=== PATIENT | male | born 1980 | race Caucasian/White ===

== ENCOUNTER 2017-02-13 16:57 | Emergency (ER) | payer SELFPAY ==
[~2017-02-13] VITALS: Ht 167.6 cm; Wt 94.8 kg
[~2017-02-13 16:57] MED LIST: CLB/200 PO; GLC/500 PO; METH1INJ89 INJ; PRED-301 PO; PRT/20 PO
[2017-02-13 16:59] VITALS: BP 109/70; PULSE 81; TEMP 36.5; O2SAT 97; Ht 167.6 cm; Wt 94.8 kg
[2017-02-13] MEDS ORDERED: PRED10TA PO (17:11)
[2017-02-13] MEDS ORDERED: ADAL40KI SQ (17:11)
[2017-02-13] MEDS ORDERED: HYDR-5688 PO ×2 (18:06→18:07)
[2017-02-13] MEDS ORDERED: CYCL5TAB PO ×2 (18:06→18:07)
--- NOTE | 2017-02-13 18:09 | EMERGENCY ROOM VISIT NOTE ---
ED Visit Note First contact with patient: 17:51 CHIEF COMPLAINT: Low back pain HISTORY OF PRESENT ILLNESS: This 36-year-old male patient presents to the emergency department via private vehicle complaining of pain in the low back which began January 30 on the left side between the left shoulder blade and the buttocks region. The pain was gradual in onset, is now constant and worse with movement. He notes that today while lifting a 2 x 12 he twisted and felt immediate pain in the same region of the left paraspinous musculature. The patient notes the pain as severe and a 8/10. The patient has taken icy hot type material without relief of the pain. The patient denies any loss of control of their bowel or bladder functions. There has been no leg numbness or weakness, and no change in sensation. No nausea or vomiting or abdominal pain. No chest pain or shortness of breath, but does note that he has slight difficulty breathing when the muscle spasm occurs. The patient has no had prior back injuries. No dysuria or increased urinary frequency. REVIEW OF SYSTEMS: A review of systems was performed with positives and pertinent negatives listed in the history of present illness. All other systems were reviewed and are negative. ALLERGIES: None MEDICATIONS: As noted below PMH: Psoriatic arthritis SOCIAL HISTORY: Patient lives locally PHYSICAL EXAM: VITALS: Vitals are noted on the nurse's note and reviewed by myself. Vital signs stable. GENERAL: 36-year-old male, in no acute distress, nondiaphoretic, well-developed well-nourished. SKIN: The skin was without rashes, erythema, edema, or bruising. HEART: Regular rate and rhythm without murmurs gallops or rubs. LUNGS: Clear to auscultation bilaterally without wheezes, rales or rhonchi. ABDOMEN: Positive bowel sounds x 4. Soft, nontender, without masses or organomegaly. MUSCULOSKELETAL: No muscle atrophy, erythema, or edema noted of the back. There is no tenderness over the lumbar spinous processes. There is positive tenderness over the paraspinous muscles of the left side of the spine from the left scapular region inferior to the gluteal region. There is no tenderness over the thoracic spine but there is tenderness on the left paraspinous muscles. There are positive left-sided muscle spasms present. The patient is slow to move around with maximum tenderness with just below the left scapula and the paraspinous musculature. NEURO: Deep tendon reflexes 2+ in the lower extremities. Strength 5/5 and equal in the bilateral lower extremities. EMERGENCY DEPARTMENT COURSE: Patient was seen and evaluated as above. He presents to us today with back pain and some shortness of breath when the pain occurs. There is no chest pain. Vital signs stable. No evidence of cauda equina on my exam. His pain is reproducible by palpation of the left paraspinous musculature on exam. I believe this is consistent with that of the paraspinous musculature spasm or strain. He'll be managed with Flexeril/muscle relaxers as well as a short course of pain medication. I do not believe that any imaging at this time is appropriate and will be of no benefit. He is to follow with his family doctor regarding today's visit. He was educated upon management, educated upon worrisome symptoms in which to return, had questions answered prior to discharge, and was discharged home in good condition. In the treatment of this patient controlled medication was utilized and therefore the [facility], Prescription Drug Monitoring Program website was utilized to look up this patient. No concerns were identified that would prohibit or alter my treatment decision. In evaluation treatment this patient following differential diagnoses radiographs: Cauda equina syndrome, lumbar strain, sprain, fracture, dislocation , among others. Problem List Medical Problems: (1) Diabetes mellitus Status: Chronic (2) Lyme arthritis Status: Chronic (3) Psoriasis Status: Chronic Current/Historical Medications Scheduled Adalimumab (Humira Pen), 1 DOSE SQ [id number] Celecoxib (CeleBREX), 200 MG PO DAILY Cyclobenzaprine Hcl (Flexeril), 5 MG PO TID Metformin Hcl (Glucophage), 1,000 MG PO BID Pantoprazole (Protonix), 1 TAB PO DAILY Prednisone (Prednisone), 10 MG PO DAILY Scheduled PRN Hydrocodone/Acetaminophen 5MG/325MG ([place] 5MG/325MG), 1-2 TABLET PO Q6 PRN for Pain Allergies Coded Allergies: No Known Allergies (Unverified Allergy, Mild, 01/31/08) Vital Signs Date Time Temp Pulse Resp B/P (MAP) Pulse Ox O2 Delivery O2 Flow Rate FiO2 02/13/17 16:59 36.5 81 16 109/70 97 Room Air Departure Information Impression Primary Impression: Strain of lumbar region Dispostion Home / Self-Care Condition GOOD Prescriptions Hydrocodone/Acetaminophen 5MG/325MG ([place] 5MG/325MG) Tab 1-2 TABLET PO Q6 Y for Pain, #15 TAB For Initial Treatment Prov: Geovanni Hernández PA-C 02/13/17 Cyclobenzaprine Hcl (FLEXERIL) 5 Mg Tab 5 MG PO TID for 7 Days, #21 TAB PRN Prov: Geovanni Hernández PA-C 02/13/17 Referrals [facility] (PCP) Patient Instructions [facility] Additional Instructions You have been treated in the Emergency Department for Back Pain. You have received pain medicine in the emergency department which impairs your ability to operate a vehicle. It is illegal for you to drive after receiving these medicines. You have been prescribed NORCO to be used for pain control. This is a narcotic medication. You cannot drive or consume alcohol while on this medicine. This medicine should only be used for pain that cannot be controlled with over-the- counter pain medicines. You have been prescribed Flexeril (cyclobenzaprine) 1-2 tabs orally, three times per day. Do NOT exceed 30 mg (6 tabs) per day. Take your first dose at bedtime as it can make you drowsy. Always take all medications as prescribed. For pain control, you can use the following [id number] medicines (if >12 yo): - Regular strength (325mg/tab) Tylenol (acetaminophen) 2 tabs every 4-6 hours as needed. Do not exceed 12 tablets in a 24 hour period. Avoid taking more than 3 grams (3000 mg) of Tylenol per day. This includes any other sources of acetaminophen you may take on a regular basis. NO TYLENOL WITH THE NORCO - Regular strength (200 mg/tab) Advil (ibuprofen) 1-2 tabs every 4-6 hours as needed. Do not exceed a dose of 3200 mg per day. If this is an acute injury, ice can be applied to the area of pain for the first 3 days to help decrease pain and inflammation. After the first 3 days, a heating pad can be used over the area for continued soothing relief. You should schedule a follow-up appointment in 2-3 days with your Primary Care Provider for further evaluation and treatment of your back pain. Return to the Emergency Department if your current symptoms worsen despite treatment course outlined above, or if you develop any of the following symptoms : intractable pain despite aforementioned treatment course, loss of control of your bowel or bladder, numbness or tingling in your groin, or development of a fever.
== END 2017-02-13 18:14 | disposition home or self-care (01) ==
LOC: C.EDB 16:59 → C.EDD 18:14
DX: S39.012A Strain of muscle, fascia and tendon of lower back, initial encounter (principal); X58.XXXA Exposure to other specified factors, initial encounter; E11.9 Type 2 diabetes mellitus without complications; A69.23 Arthritis due to Lyme disease; L40.9 Psoriasis, unspecified

== ENCOUNTER 2017-05-11 21:47 | Emergency (ER) | payer SELFPAY ==
[~2017-05-11] VITALS: Ht 167.6 cm; Wt 92.6 kg
[~2017-05-11 21:47] MED LIST changes: +ADAL40KI SQ; +HYDR-5688 PO; -METH1INJ89 INJ; -PRED-301 PO; +PRED10TA PO
[2017-05-11 21:48] VITALS: BP 129/83; TEMP 37; Ht 167.6 cm; Wt 92.6 kg
[2017-05-11] MEDS ORDERED: AMOX875T PO (22:09)
[2017-05-11] MEDS ORDERED: DIPHTHERIA/TETANUS/PERTUSSIS 0.5 ML SYR/VIAL IM. ONE (22:15)
[2017-05-11] MEDS ORDERED: AMOXICIL/CLAVU 875MG HOME PACK PO ONE (22:15)
[2017-05-11 22:22] VITALS: PULSE 76; O2SAT 97
--- NOTE | 2017-05-12 00:16 | EMERGENCY ROOM VISIT NOTE ---
ED Visit Note First contact with patient: 21:52 Chief Complaint: Dog bite. History of Present Illness: Mr. Francis is a 37-year-old male who ambulates into the ED complaining of a dog bite to the left hand. Patient reports approximately 20 minutes prior to arrival at the hospital he was playing with his dog and received a dog bite to the dorsal aspect of the left hand. He reports prior to arrival he did control bleeding. Currently patient is complaining of a throbbing pain throughout the dorsal aspect of the hand. He rates his discomfort 7/10. Pain is nonradiating. His pain worsens with palpation of his puncture wounds. He has not identified any alleviating factors related to the pain. He has not taken any medication for pain prior to arrival at the hospital. He denies any associated symptoms including other arm or wrist pain, hand weakness/numbness/tingling. He does report his dog is an indoor dog and has been of his normal temperature but notes that his rabies immunizations have not been updated in the last 3 years. Review of Systems: As noted above in history of present illness. Past Medical History: Diabetes, arthritis. Current Medications: Glucophage, Protonix, Celebrex and Humira. Allergies to Medications: Patient denies. Social History: Patient is currently employed; he feels safe in his home environment; he admits to tobacco use and denies alcohol use. Tetanus Immunization Status: Patient reports out to date. Physical Examination: Vital Signs: Date Time Temp Pulse Resp B/P (MAP) Pulse Ox O2 Delivery O2 Flow Rate FiO2 05/11/17 22:22 76 16 97 05/11/17 21:48 37.0 80 18 129/83 96 Room Air GENERAL: 37-year-old male in mild to moderate distress due to pain, nontoxic- appearing, afebrile and hemodynamically stable. NEUROLOGICAL: Awake, alert and oriented to person, place and time. Answering questions appropriately and following commands. Normal gait. Good hand eye coordination. No focal motor or sensory deficits. SKIN: Warm, dry and pink. Left Hand: Over the dorsal aspect of the left hand patient has 2 puncture wounds. #1 puncture wound: Is located over the fourth MCP joint. This does appear to be full thickness. There is no active bleeding. #2 puncture wound: Is located be between the second and third metacarpal. This appears partial-thickness. There is no active bleeding. Around both of these injuries there is mild swelling but no ecchymosis. LEFT HAND: No gross bony deformity. No tenderness throughout the wrist. Moderate tenderness over both wounds but no other hand tenderness. Patient had full range of motion of all MCP, PIP and DIP joints against resistance. Throughout all fingers the skin was warm and pink and capillary refill was brisk. He was able to distinguish light sensations through all dermatomes of the fingers and the hand. ED Course: Patient is assessed as noted above. Patient's medication list was reviewed. Patient was offered pain medication and refused. Patient was given an Adacel booster. Patient's wounds were cleansed with antibacterial soap and water and covered with a bacitracin dressing. Patient was educated about today's findings and instructed on his treatment plan ; he verbalized understanding and agreement with this plan. Clinical Impression: Dog bite/puncture wounds to the left hand. Disposition: A shunt discharged home in stable condition; prior to departure he was reassessed and subjectively reported he was feeling the same. Plan: Patient was encouraged to alternate ibuprofen and acetaminophen as needed for pain. Patient was encouraged to use ice on the area of pain and swelling 5-6 times a day for 20-30 minutes per Patient was prescribed Augmentin 875 mg 2 times a day for 10 days. Patient was educated on wound care and signs of infection, uncontrolled pain or any new/concerning symptoms.. Patient was encouraged to contact his dog's vet, and inform them of today's ED visit and request that the dog be followed for rabies and have his rabies immunization updated. Patient was encouraged to follow-up with primary care provider return to the ED for any signs of infection
== END 2017-05-11 22:23 | disposition home or self-care (01) ==
LOC: C.EDB 21:48 → C.EDD 22:23
DX: S61.452A Open bite of left hand, initial encounter (principal); W54.0XXA Bitten by dog, initial encounter; Y92.019 Unspecified place in single-family (private) house as the place of occurrence of the external cause; E11.9 Type 2 diabetes mellitus without complications; M19.90 Unspecified osteoarthritis, unspecified site; Z72.0 Tobacco use; Z79.899 Other long term (current) drug therapy

== ENCOUNTER 2017-09-15 11:02 | Emergency (ER) | payer OTHER ==
[~2017-09-15] VITALS: Ht 167.6 cm; Wt 90.4 kg
[~2017-09-15 11:02] MED LIST changes: -HYDR-5688 PO; -PRED10TA PO
[2017-09-15 11:06] VITALS: TEMP 36.7; Ht 167.6 cm; Wt 90.4 kg
[2017-09-15] MEDS ORDERED: ALL100 PO (11:27)
--- NOTE | 2017-09-15 11:47 | DIAGNOSTIC IMAGING REPORT ---
R FOOT MIN 3 VIEWS ROUTINE HISTORY: 37 years-old Male tree trunk fell on right foot acute right foot pain COMPARISON: Right ankle radiographs 05/07/2013 TECHNIQUE: 3 views of the right foot FINDINGS: Marginal bone erosions with proliferative changes about the metatarsophalangeal to lesser extent interphalangeal joints are noted throughout. Hence on cup deformity of the fifth metatarsal phalangeal joint with mild periostitis of the mid shaft fifth metatarsal. Joint subluxation is noted within the third through fifth interphalangeal joints and also within the third through fifth metatarsophalangeal joints. Soft tissue prominence about the digits compatible with dactylitis. Bones appear mildly demineralized. No acute fracture or dislocation. Moderate enthesophyte about the calcaneus. Mild marginal spurring of the midfoot and tibiotalar joint. IMPRESSION: 1. No acute fracture or dislocation. 2. 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 The above report was generated using voice recognition software. It may contain grammatical, syntax or spelling errors. Electronically signed by: William Polanco M.D. 09/15/2017 11:45 AM Dictated Date/Time: 09/15/2017 11:38 AM
[2017-09-15 12:15] VITALS: BP 118/81; PULSE 88; O2SAT 98
--- NOTE | 2017-09-15 15:30 | EMERGENCY ROOM VISIT NOTE ---
ED Visit Note First contact with patient: 11:09 Chief Complaint: Right foot pain. History of Present Illness: Mr. Francis is a 37-year-old male who ambulates into the ED accompanied by his and son complaining of right foot pain over the first, second and third metatarsals. Patient reports he was at work last week, 4-5 days ago, and had a tree trunk roll over his foot. Since that time he has been having pain and swelling. He reports yesterday he noticed some ecchymosis but that has subsequently resolved. He is most concerned about the constant pain that is in the area. Currently he describes the pain as a throbbing sensation. He rates his discomfort 5/10. His pain is nonradiating. His pain worsens with palpation and weightbearing. He reports he has mild relief of his pain when he is not ambulating and in bed at rest at night with NSAIDs including Aleve and ibuprofen. He denies any previous significant injuries or surgeries. He denies any associated symptoms including knee pain, ankle pain, toe pain. Review of Systems: As noted above in history of present illness. Past Medical History: Diabetes, psoriatic arthritis. Current Medications: Metformin, Protonix, Celebrex, Humira, Allopurinol Allergies to Medications: Patient denies. Social History: Patient is currently employed; he feels safe in his home environment; he admits to tobacco use and denies alcohol use Physical Examination: Vital Signs: Date Time Temp Pulse Resp B/P (MAP) Pulse Ox O2 Delivery O2 Flow Rate FiO2 09/15/17 12:15 88 118/81 98 09/15/17 11:06 36.7 102 18 109/75 97 Room Air GENERAL: 37-year-old male in mild distress due to pain, nontoxic-appearing, afebrile and hemodynamically stable. NEUROLOGICAL: Awake, alert and oriented to person, place and time. Answering questions appropriately and following commands. SKIN: Warm, dry and pink. RIGHT LOWER EXTREMITY: No gross bony deformity. No tenderness in the knee, lower leg or ankle. Moderate tenderness over the dorsal aspect of the foot including the first, second and third metacarpals. There is mild swelling and minimal residual ecchymosis in this area. I do not appreciate any bony deformity or crepitus. He had full range of motion in plantarflexion, dorsiflexion and inversion and eversion of the ankle. He was able to wiggle his toes. He does have arthritic changes to the toes predominantly at the MTP joints. Throughout the foot the skin was warm and pink and capillary refill was brisk. He was able to distinguish light sensations to all dermatomes. ED Course: Patient is assessed as noted above. Patient's medication list was reviewed. Patient was offered pain medication and refused; he was given ice for pain and swelling. Right Foot X-Rays: Were read by myself and read by the radiologist showing no acute fractures or dislocations. Radiologist reports evidence of seronegative spondylarthritis and dactylitis compatibility with his psoriatic psoriatic disease. Patient was placed in a postop shoe and on nonweightbearing crutches. Patient was educated about today's findings and instructed on his treatment plan ; he verbalized understanding and agreement with this plan. Clinical Impression: Right foot contusion. Work-related injury. Disposition: Patient discharged home in stable condition accompanied by his and son; prior to departure he was reassessed and subjectively reported he was feeling better. Plan: Patient was encouraged to avoid Aleve and ibuprofen at the same time but was encouraged alternate ibuprofen and acetaminophen every 3 hours for pain. Additional comfort measures were discussed including rest, elevation, ice, splint and crutch use. Patient was signed off work for 3 days and encouraged to follow-up with Workmen' s Compensation for recheck in 3 days for return to work instruction. Patient was encouraged return the ED for worsening/uncontrolled pain, uncontrolled swelling or any new/concerning symptoms.
== END 2017-09-15 12:15 | disposition home or self-care (01) ==
LOC: C.EDB 11:04 → C.EDD 12:15
DX: S90.31XA Contusion of right foot, initial encounter (principal); W20.8XXA Other cause of strike by thrown, projected or falling object, initial encounter; Y99.0 Civilian activity done for income or pay; E11.9 Type 2 diabetes mellitus without complications; L40.50 Arthropathic psoriasis, unspecified; Z79.899 Other long term (current) drug therapy; Z72.0 Tobacco use